=== PATIENT | female | born 1955 | race Caucasian/White ===

== ENCOUNTER → 2017-11-15 | Outpatient (CLI) | payer OTHER ==
[~2017-11-15] MED LIST: LIDOCAINE-MPF 1%, 2ML ONE
== END | disposition home or self-care (01) ==
LOC: RAD 12:14
PROVIDERS: ATTEND Specialist
DX: C82.00 Follicular lymphoma grade I, unspecified site (principal); R59.0 Localized enlarged lymph nodes
CPT/HCPCS: 76942; 88172; 88173; J3490